=== PATIENT | male | born 1970 | race Caucasian/White ===

== ENCOUNTER 2021-01-29 21:55 | Observation (INO) | payer OTHER ==
[~2021-01-29] VITALS: Ht 177.8 cm; Wt 86.2 kg
== END 2021-01-30 06:55 | disposition home or self-care (01) ==
LOC: ER 21:55 → EOR 21:56
PROVIDERS: ADMIT Emergency Medicine
DX: F32.9 Major depressive disorder, single episode, unspecified (principal)
CPT/HCPCS: 99285; G0378; Q3014

== ENCOUNTER 2021-01-30 23:09 | Emergency (ER) | payer OTHER ==
[~2021-01-30] VITALS: Ht 177.8 cm; Wt 85.7 kg
== END 2021-01-31 03:47 | disposition left against medical advice (07) ==
LOC: ER 23:09
DX: Z13.9 Encounter for screening, unspecified (principal); F17.210 Nicotine dependence, cigarettes, uncomplicated
CPT/HCPCS: 99282

== ENCOUNTER 2021-02-04 01:16 | Emergency (ER) | payer OTHER ==
[~2021-02-04] VITALS: Ht 177.8 cm; Wt 85.7 kg
== END 2021-02-04 09:04 | disposition left against medical advice (07) ==
LOC: ER 01:16
DX: Z53.21 Procedure and treatment not carried out due to patient leaving prior to being seen by health care provider (principal)

== ENCOUNTER 2021-02-05 21:57 | Emergency (ER) | payer OTHER ==
[~2021-02-05] VITALS: Ht 165.1 cm; Wt 72.6 kg
== END 2021-02-06 00:01 | disposition home or self-care (01) ==
LOC: ER 21:57
DX: Z00.8 Encounter for other general examination (principal); F17.200 Nicotine dependence, unspecified, uncomplicated; Z88.8 Allergy status to other drugs, medicaments and biological substances
CPT/HCPCS: 99283